=== PATIENT | female | born 1970 ===

== ENCOUNTER 2018-02-04 15:07 | Emergency (ER) | payer OTHER ==
[2018-02-04 15:42] VITALS: RESP 20; TEMP 97
[2018-02-04 16:21] LABS: HEMATOCRIT 37 % (35-47); HEMOGLOBIN 12.3 gm/dl (12.0-15.5); MEAN CORPUSCULAR HEMOGLOBIN 29.4 pg (27.0-32.0); MEAN CORPUSCULAR HGB CONC 33.3 gm/dl (32.0-36.0); MEAN CORPUSCULAR VOLUME 88 fL (81-99)
[2018-02-04 16:38] LABS: ALBUMIN 3.3 gm/dl (3.4-5.0); ALKALINE PHOSPHATASE 71 IU/L (46-116); ALT 15 IU/L (14-63); AST 12 IU/L (15-37); BILIRUBIN,TOTAL 0.3 mg/dl (0.2-1.0); BLOOD UREA NITROGEN 9 mg/dl (7-18); CALCIUM 8.3 mg/dl (8.5-10.1); CARBON DIOXIDE 28.6 mEq/L (21-32); CHLORIDE 104 mMol/L (98-107); CREATININE 0.75 mg/dl (0.60-1.00); GLOM FILT RATE 83 mL/min (>60); GLUCOSE 111 mg/dl (74-106); POTASSIUM 3.8 mMol/L (3.5-5.1); SODIUM 138 mMol/L (136-145); TOTAL PROTEIN 6.2 gm/dl (6.4-8.2); TROP I < 0.017 ng/ml (0.000-0.056)
[2018-02-04 16:50] LABS: BAND NEUTROPHILS % (MANUAL) 0 %; BASOPHILS % (MANUAL) 0 % (0-3); EOSINOPHILS % (MANUAL) 0 % (0-9); LYMPHOCYTES % (MANUAL) 28 % (10-50); MONOCYTES % (MANUAL) 10 % (0-12); NEUTROPHILS % (MANUAL) 62 % (37-80); NORMAL RBCS PRESENT
[2018-02-04 17:48] VITALS: BP 106/62; PULSE 64; O2SAT 98
== END 2018-02-04 17:59 | disposition home or self-care (01) ==
LOC: ED 15:07
DX: R55 Syncope and collapse (principal); R40.2362 Coma scale, best motor response, obeys commands, at arrival to emergency department; R40.2142 Coma scale, eyes open, spontaneous, at arrival to emergency department; R40.2252 Coma scale, best verbal response, oriented, at arrival to emergency department
CPT/HCPCS: 70450; 80053; 84484; 84703; 85007; 85027; 93005; 99284